=== PATIENT | male | born 1960 | race Caucasian/White ===

== ENCOUNTER 2022-01-15 10:04 | Inpatient (IN) | payer OTHER ==
[~2022-01-15] VITALS: Ht 177.8 cm; Wt 116.0 kg
[2022-01-15] MEDS ORDERED: NOVOLOG 100U100 U/M1 SQ (10:53)
[2022-01-15] MEDS ORDERED: TRESIBA FL200 UNIT/1 SQ (10:53)
[2022-01-15] MEDS ORDERED: CYMBALTA 60MG60 MG PO (10:54)
[2022-01-15] MEDS ORDERED: PRAVACHOL80 MG PO (10:54)
[2022-01-15] MEDS ORDERED: CATAPRES 0.1MG0.1 MG PO (10:55)
[2022-01-15] MEDS ORDERED: K-DUR20 MEQ PO (10:56)
[2022-01-15] MEDS ORDERED: LASIX 40MG TABL40 MG PO (11:03)
[2022-01-15] MEDS ORDERED: COREG 25MG25 MG/TAB PO (11:03)
[2022-01-15] MEDS ORDERED: ARICEPT10 MG PO (11:03)
[2022-01-15] MEDS ORDERED: BENICAR HCT 251 TAB PO (11:04)
[2022-01-15 11:09] LABS: BASO % 0.3 % (0.0-2.0); EOS # 0.3 K/mm3 (0.0-0.7); EOS % 2.4 % (0.0-4.0); GRAN # 9.5 K/mm3 (1.4-6.5); GRAN % 82.6 % (42.2-75.2); HEMATOCRIT 39.1 % (42.0-52.0); HEMOGLOBIN 12.2 g/dl (13.5-18.0); LYMPH # 0.8 K/mm3 (1.2-3.4); LYMPH % 6.6 % (20.0-51.0); MEAN CELL VOLUME 80 fl (80.0-100.0); MEAN CORPUSCULAR HEMOGLOBIN 25 pg (27-31); MEAN CORPUSCULAR HGB CONC 31 g/dl (33.0-37.0); MEAN PLATELET VOLUME 9.8 fl (7.4-10.4); MONO # 0.9 K/mm3 (0.1-0.6); MONO % 7.8 % (1.7-9.3); PLATELET COUNT 260 K/mm3 (130-400); REDCELL DISTRIBUTION WIDTH-CV 14.2 % (11.5-14.5)
[2022-01-15 11:22] LABS: ACETONE,SERUM NEGATIVE
[2022-01-15 11:24] LABS: COLLECTION METHOD CLEAN CATCH
[2022-01-15 11:27] LABS: ALANINE AMINOTRANSFERASE 17 U/L (0-55); ALBUMIN 3.8 gm/dL (3.5-5.0); ALKALINE PHOSPHATASE 83 U/L (40-150); ANION GAP 11 mmol/L (7-16); AST,SGOT 20 U/L (5-34); BILIRUBIN,TOTAL 0.5 mg/dL (0.2-1.2); BLOOD UREA NITROGEN 19 mg/dL (8-26); CALCIUM 8.9 mg/dL (8.4-10.2); CARBON DIOXIDE 32 mmol/L (22-29); CHLORIDE 99 mmol/L (98-107); GLUCOSE 57 mg/dL (70-99); SODIUM 142 mmol/L (136-145); TOTAL PROTEIN 7.9 gm/dL (6.2-8.1)
[2022-01-15 11:29] LABS: MUCOUS Present (NOT PRESENT); PH 8 (5-8); SQUAMOUS EPITHELIAL None Seen /hpf (0-10); URINE APPEARANCE Clear (CLEAR/HAZY); URINE BACTERIA None Seen /hpf (NONE SEEN); URINE BILIRUBIN Negative (NEGATIVE); URINE BLOOD Negative (NEGATIVE); URINE COLOR Yellow (YELLOW); URINE GLUCOSE Negative (NEGATIVE); URINE KETONE Negative (NEGATIVE); URINE LEUKOCYTE ESTERASE Negative (NEGATIVE); URINE NITRATE Negative (NEGATIVE); URINE PROTEIN(semi-quant) 2+ (NEGATIVE); URINE RBC 0-2 /hpf (0-2); URINE UROBILINOGEN Negative (NEGATIVE)
[2022-01-15 11:31] LABS: POTASSIUM 2.6 mmol/L (3.5-4.5)
[2022-01-15] MEDS ORDERED: PRILOTC (13:50)
[2022-01-15] MEDS ORDERED: TUMS DUAL ACTIO1 CTB (13:51)
[2022-01-15] MEDS ORDERED: CLARITIN 1010 MG/TAB PO (13:56)
[2022-01-15 14:06] VITALS: BP 197/86; PULSE 82; TEMP 98.6
--- NOTE | 2022-01-15 14:10 | NUR ---
PT TO FLOOR FROM ER. PT LAYING SUPINE IN BED ON ROOM AIR. BROTHER AT BEDSIDE. PT STATES NO PAIN OR DISCOMFORT AT THIS TIME. PT DOES HAVE A SCAB ON HIS NOSE FROM HIS FALL LAST NIGHT AND A SCAB ON EACH LOWER LEG. PT BED WAS PADDED FOR SEIZURE PRECAUTIONS. EDUCATED PT ABOUT PADS, NEED FOR BLOOD SUGAR CHECK EVERY HOUR, AND NEURO CHECKS. PT VOICES UNDERSTANDING. EDUCATED PT ABOUT MEALS AND ORDERING. PT WANTED TO GO AHEAD AND ORDER DINNER AND BREAKFAST FOR TOMORROW. ASSISTED PT TO DO SO. PT STATES NO PAIN OR NEEDS AT THIS TIME. CALL LIGHT IS WITHIN REACH.
--- NOTE | 2022-01-15 14:20 | NUR ---
PT OFF FLOOR TO CT
--- NOTE | 2022-01-15 14:33 | NUR ---
SPOKE TO PHARMACIST ABOUT PT MEDICATIONS. PT GOT POTASSIUM 40MEQ IN ER AND THEN 80MEQ WAS ORDERED ON FLOOR. PHARMACIST ADVISED TO ONLY GIVE 40MEQ TO NOT EXCEED 80MEQ FOR THE DAY. 2 DOSES TO BE GIVEN AND THEN 2 WAS CHARTED AGAINST.
--- NOTE | 2022-01-15 14:40 | NUR ---
PT BACK TO FLOOR FROM CT SCAN.
--- NOTE | 2022-01-15 15:35 | NUR ---
FLUIDS DC PER DR CHARLTON
[2022-01-15 16:06] VITALS: BP 196/79; PULSE 77; TEMP 98.6
--- NOTE | 2022-01-15 18:08 | NUR ---
PT SITTING UP ON SIDE OF BED EATING DINNER. PT HAS A LOT OF COMPLAINTS ABOUT THE FOOD AND THE AMOUNT OF HOW MUCH THAT HE GOT. I SUGGESTED TO THE PT TO CALL THE KITCHEN AND ORDER SOMETHING ELSE IF HE NEEDED MORE. ALSO INFOMRED HIM THAT WE HAVE SOME ITEMS UP HERE IF HE WAS INTERESTED IN THEM. PT ALSO CONCERNED ABOUT HOW HE HAS NOT GOTTEN ANY INSULIN. I EDUCATED PT THAT WHEN HE CAME IN HIS BS WAS VERY LOW AND THAT WE ARE TRYING TO GET IT TO COME UP AND THAT IS WHY HE HAS NOT GOTTEN ANY. EDUCATED PT THAT WE ARE MONITORING HIS BS VERY CLOSELY SO IF HE NEEDS INSULIN THEN WE WILL BE ABLE TO ADDRESS THAT WHEN THAT TIME COMES. PT VOICES UNDERSTANDING. PT STATES NO PAIN OR DISCOMFORT AT THIS TIME. CALL LIGHT IS WITHIN REACH.
[2022-01-15 20:02] VITALS: BP 165/81; PULSE 71; TEMP 98.1
[2022-01-15 23:59] VITALS: BP 144/62; PULSE 70; TEMP 98
[2022-01-16 04:13] VITALS: BP 166/72; PULSE 68; TEMP 98
[2022-01-16 07:27] VITALS: BP 184/85; PULSE 68; TEMP 98.9
[2022-01-16 07:40] LABS: CALCIUM 8.9 mg/dL (8.4-10.2); CREATININE, serum 1.14 mg/dL (0.72-1.25); POTASSIUM 3.7 mmol/L (3.5-4.5)
--- NOTE | 2022-01-16 09:18 | NUR ---
Patient irritated this morning and raising voice with staff. Upset that he was not getting insulin before breakfast. This RN educated the patient on sliding scale insulin and explained that the patient's blood sugar was 124 and that this did not require any insulin. Patient stateds, "I always take insulin before I eat. Now I'm going to be high and I'm just going to spend all day chasing my blood sugars. I am not a happy camper right now." This RN explained that this could be discussed w/ the hospitalist when he does rounding.
[2022-01-16 11:17] VITALS: BP 175/78; PULSE 66; TEMP 98.2
--- NOTE | 2022-01-16 14:01 | NUR ---
Line Lead met with patient, William, for intake assessment/discharge planning: Patient presents alert and oriented, irritable. He states he is "not a happy camper right now...the sooner (discharge) the better," noting he has frustrations that nursing won't let him ambulate or transfer without assistance and he lives alone at home, in an apartment with a 1/2 flight of stairs that he states he can navigate without difficulty. He notes his brother Fredrick, who is a nurse, "looks over" him, calling 3-4 times a day for a check-in. Brother notes no calls answered yesterday and arrived to patient home to find him "passed out" and sought his emergency medical care. Patient states he has had diabetes for 40+ years; he retired and moved from [place] to [place], where his family support resides. He states his primary care physician is Dr. Ramirez, and he obtains his medications at [facility]. He has no difficulties obtaining his medications. Patient states belief he has DPOA-HC paperwork on file in his EMR and if not, his brother will take care of his needs on his behalf. He declines interest in obtaining DPOA-HC/Advanced Directives this date. He states he has no needs at home, and he is independent in his ADLs/IADLs. He reports a desire to return to home. *Discharge plan: Home with local supportive family/brother*
[2022-01-16 15:41] VITALS: BP 209/86; PULSE 71; TEMP 98.4
--- NOTE | 2022-01-16 16:28 | NUR ---
Patient's DPOA concerned about patient discharging home w/ uncontrolled blood sugars. Dr. Fernandez notified of this and Dr. Fernandez stated it was up to this RN to keep the patient or not. DPOA requested that Dr. Hall be the attending physician rather than Dr. Fernandez. Dr. Hall notified of this, stated that this was okay and to cancel discharge. Dr. Hall stated he was very busy and would get to the patient once he has a chance.
--- NOTE | 2022-01-16 18:28 | NUR ---
Patient in a bit better mood now that he has received long-acting insulin.
[2022-01-16 20:10] VITALS: BP 152/52; PULSE 67; TEMP 98.5
[2022-01-17 00:18] VITALS: BP 157/68; PULSE 65; TEMP 99
[2022-01-17 04:30] VITALS: BP 153/80; PULSE 74; TEMP 97.9
--- NOTE | 2022-01-17 06:10 | NUR ---
ASSESSMENT COMPLETE FOR THIS SHIFT. PT SITTING UP IN BED WATCHING TV. PT DENIED PAIN, PALPITATIONS, N,V,D, SOB OR DIZZINESS. PT BS ELEVATED AT THE BEGINNING OF THE SHIFT. PT GIVEN HS DOSE OF NOVOLOG. BS DOWN TO 86 BY END OF SHIFT. PT WANTED AND GIVE APPLE JUICE TO ENSURE HIS BS DIDN'T GET ANY LOWER. PT SHOUTED OUT LOUD SEVERAL TIMES TONIGHT IN HIS SLEEP. PT EXPRESSED NO OTHER NEEDS AT THIS TIME. CALL LIGHT WITHIN REACH.
[2022-01-17 07:50] VITALS: BP 175/71; PULSE 72; TEMP 98.3
--- NOTE | 2022-01-17 08:34 | NUR ---
Assessment completed, alert/oriented, vital signs stable, denies pain or discomfort, his blood sugars are being better controlled at this time, heart RRR, potassium 3.1/ replacing per protocol, no neuro defictis noted over night or this morning/ no seizure activity observed, he is at edge of the bed eating breakfast, denies other needs and wants to go home today, gave his mornign meds, and will cotinue to mmonitor
[2022-01-17] MEDS ORDERED: K-DUR20 MEQ PO (11:37)
[2022-01-17] MEDS ORDERED: TRESIBA FL200 UNIT/1 SQ (11:37)
[2022-01-17] MEDS ORDERED: NOVOLOG 100U100 U/M1 SQ (11:37)
[2022-01-17 11:45] VITALS: BP 155/67; PULSE 69; TEMP 98
[2022-01-17 15:44] VITALS: BP 149/61; PULSE 70; TEMP 97.9
--- NOTE | 2022-01-17 19:14 | NUR ---
Patient discharging home, I have discussed D/C order with him, removed one IV site and we are waiting untill he is ready to walk out to remove his right arm IV, he is waiting on his brother Fredrick
[2022-01-17 19:42] VITALS: BP 153/65; PULSE 79; TEMP 98.3
== END 2022-01-17 20:00 | disposition home or self-care (01) | DRG 639 ==
LOC: COL.ER 10:04 → MEDICAL 11:31 → COL.ER 11:54 → MEDICAL 11:54 → SURG 01-17 19:43 → MEDICAL 01-17 19:43
PROVIDERS: Physician Assistant; ADMIT Internal Medicine
DX: E10.649 Type 1 diabetes mellitus with hypoglycemia without coma (principal); F32.A Depression, unspecified; I10 Essential (primary) hypertension; G30.9 Alzheimer's disease, unspecified; F02.80 Dementia in other diseases classified elsewhere, unspecified severity, without behavioral disturbance, psychotic disturbance, mood disturbance, and anxiety; E87.6 Hypokalemia; E10.51 Type 1 diabetes mellitus with diabetic peripheral angiopathy without gangrene; R56.9 Unspecified convulsions; E78.5 Hyperlipidemia, unspecified; S00.81XA Abrasion of other part of head, initial encounter
CPT/HCPCS: 99223-AI; 99232-AI; 99239; J1650; J1815; J1940; J7042

== ENCOUNTER → 2022-12-08 | Outpatient (CLI) | payer OTHER, MEDICAID ==
[~2022-12-08] MED LIST: ARICEPT10 MG PO; BENICAR HCT 251 TAB PO; CATAPRES 0.1MG0.1 MG PO; CLARITIN 1010 MG/TAB PO; COREG 25MG25 MG/TAB PO; CYMBALTA 60MG60 MG PO; K-DUR20 MEQ PO; LASIX 40MG TABL40 MG PO; NOVOLOG 100U100 U/M1 SQ; PRAVACHOL80 MG PO; PRILOTC; TRESIBA FL200 UNIT/1 SQ; TUMS DUAL ACTIO1 CTB
== END ==
LOC: COL.RAD 12-07 14:15
DX: K82.8 Other specified diseases of gallbladder (principal)

== ENCOUNTER 2024-02-28 12:57 | Day surgery (SDC) | payer OTHER, MEDICARE ==
[~2024-02-28] VITALS: Ht 175.3 cm; Wt 125.7 kg
[~2024-02-28 12:57] MED LIST changes: +ALDACTONE 25MG25 M1 PO; +AMOXICILLIN/CLA1 TA1 PO; +ASPIRIN 81M81 MG/TA2 PO; +ASPIRIN E.C. 8181 MG PO; +ATIVAN 0.50.5 MG/TAB PO; +CATAPRES0.3 MG PO; +CVS SPECTRAVIT1 EA15 PO; +K-DUR 10 MEQ T10 MEQ PO; +K-TAB10 PO; +MELATONIN5 M1 SL; +MOTRIN 200200 MG/TAB PO; +NORCO 325 MG-51 TAB PO; +NOVOLOG FLEX100 U/ML SQ; +NS 1,000 ML IV SCH; +OSCAL 500 TAB500 MG PO; +PRILOSEC 20MG20 MG PO; -PRILOTC; +ROXICODONE 55 MG/TAB PO; +TRESIBA FL100 UNIT/1 SQ; +TYLENOL 500MG500 MG PO; +VANCOCIN H125 MG/CAP PO; +ZAROXOLYN5 MG PO; +ZOFRAN ODT4 MG PO; +ZYRTEC 10MG10 MG PO; +[UNRECOGNIZED DRUG - OTHER] PO
[2024-02-28 14:23] VITALS: BP 158/66; PULSE 71; TEMP 97.4
[2024-02-28 14:23] LABS: CREATININE, serum 3.56 mg/dL (0.72-1.25); POTASSIUM 4.3 mEq/L (3.5-4.5)
[2024-02-28] MEDS ORDERED: BASAGLAR K100 UNIT/1 SQ (14:58)
[2024-02-28] MEDS ORDERED: ALDACTONE50 MG PO (15:05)
[2024-02-28] MEDS ORDERED: FERROUS SU325 MG/TAB PO (15:06)
[2024-02-28] MEDS ORDERED: DEPAKOTE 250MG250 MG PO (15:06)
[2024-02-28] MEDS ORDERED: APRESOLINE 25MG25 MG PO (15:07)
[2024-02-28] MEDS ORDERED: ZAROXOLYN5 MG PO (15:08)
[2024-02-28] MEDS ORDERED: MIRALAX PA17 GM/Dose PO (15:09)
[2024-02-28] MEDS ORDERED: RISPERDAL 1M1 MG/TAB PO (15:10)
[2024-02-28] MEDS ORDERED: Thrombin Human (Recombinant) 5,000 UNITS VIAL TP ONE (16:12)
[2024-02-28] MEDS ORDERED: Gelatin Sponge,Absorbable Size 100 SPONGE TP ONE (16:12)
[2024-02-28] MEDS ORDERED: Topical Skin Adhesive 1 EACH (1 ML) TOP ONE (16:14)
[2024-02-28 17:35] VITALS: BP 114/57; PULSE 79; TEMP 97
--- NOTE | 2024-02-28 17:35 | NUR ---
PATIENT RETURNS TO BAY 8 IN AMBULATORY. HE IS ALERT AND ABLE TO ANSWER QUESTIONS. VITAL SIGNS WNL. GLUCOSE IS 95, PATIENT GIVEN SOME ORANGE JUICE. BROTHER AT BEDSIDE. CALL LIGHT WITHIN REACH. WILL CONTINUE TO MONITOR.
[2024-02-28] MEDS ORDERED: Ondansetron 4 MG/2 ML VIAL IV PRN (17:45)
[2024-02-28] MEDS ORDERED: Acetaminophen 325 MG TAB PO PRN (17:45)
[2024-02-28 17:50] VITALS: BP 117/72; PULSE 83
--- NOTE | 2024-02-28 17:50 | NUR ---
PATIENT IS DOING WELL. VITAL SIGNS WNL. IV DISCONTINUED. PATIENT REQUESTED A MUFFIN TO EAT. DENIES ANY PAIN OR NAUSEA. WILL CONTINUE TO MONITOR.
[2024-02-28 18:05] VITALS: BP 120/74; PULSE 91
--- NOTE | 2024-02-28 18:05 | NUR ---
PATIENT IS READY FOR DISCHARGE. VITAL SIGNS WNL. DISCHARGE INSTRUCTIONS REVIEWED WITH PATIENT AND HIS BROTHER. FISTULA DISCHARGE INSTRUCTIONS PRINTED SEPARATELY. WILL DISCHARGE ONCE PATIENT IS DRESSED AND READY.
== END 2024-02-28 18:25 | disposition home or self-care (01) ==
LOC: SDCO 12:57
PROVIDERS: Surgery
DX: I12.0 Hypertensive chronic kidney disease with stage 5 chronic kidney disease or end stage renal disease (principal); N18.5 Chronic kidney disease, stage 5; E10.22 Type 1 diabetes mellitus with diabetic chronic kidney disease
CPT/HCPCS: J0665; J0690; J1644; J2704; J7030

== ENCOUNTER 2024-03-05 12:52 | Outpatient (RCR) | payer OTHER ==
[~2024-03-05] VITALS: Ht 175.3 cm; Wt 126.6 kg
[~2024-03-05 12:52] MED LIST changes: +ALDACTONE50 MG PO; +APRESOLINE 25MG25 MG PO; +BASAGLAR K100 UNIT/1 SQ; +DEPAKOTE 250MG250 MG PO; +FERROUS SU325 MG/TAB PO; +MIRALAX PA17 GM/Dose PO; -NS 1,000 ML IV SCH; +RISPERDAL 1M1 MG/TAB PO
[2024-03-05] MEDS ORDERED: Iron Sucrose 400 MG in NS 250 ML Over 150 minutes IV ONE (13:15)
[2024-03-05 13:45] VITALS: BP 116/49; PULSE 70; TEMP 98.3
--- NOTE | 2024-03-05 16:15 | NUR ---
PT TOLERATED INFUSION WELL. VS REMAINED WTIHIN NORMAL LIMITS. PT AMBULATED INDEPENDENTLY TO [facility] UPON DISCHARGE. PT FREE FROM ACUTE CONCERNS AND COMPLAINTS.
== END 2024-03-05 16:15 | disposition home or self-care (01) ==
LOC: EUO 12:52
DX: N18.4 Chronic kidney disease, stage 4 (severe) (principal); D63.1 Anemia in chronic kidney disease
CPT/HCPCS: J1756; J7050